=== PATIENT | female | born 1995 | race Caucasian/White ===

== ENCOUNTER 2016-11-22 20:59 | Emergency (ER) | payer SELFPAY ==
[~2016-11-22] VITALS: Ht 160 cm; Wt 52.0 kg
[~2016-11-22 20:59] MED LIST: ACET500C5 PO; CEPH-443 PO; FER325 PO; IBUP-1542 PO; PRENAT PO
[2016-11-22 21:08] VITALS: Ht 160 cm; Wt 52.0 kg
--- NOTE | 2016-11-22 22:45 | ERD ---
ER Documentation Chief Complaint Date/Time DATE: 11/22/16 TIME: 22:43 Chief Complaint 9 WKS . VAG BLEEDING X 2 DAYS WITH CRAMPING HPI 11-year-old female presents here in emergency department for complaints of vaginal bleeding started yesterday. Patient is approximately 9 weeks , 2 para 0 1. LMP 09/03/2016. Patient is complaining of pelvic pain and cramping pain, 4/and scanner, accompanying the vaginal bleeding. Patient denies hematuria or dysuria. Patient denies any fever or chills. Patient denies nausea or vomiting. ROS All systems reviewed and are negative except as per history of present illness. Medications Home Meds Active Scripts Ibuprofen* (Ibuprofen*) 600 Mg Tablet, 600 MG PO Q8 for PAIN AND/OR INFLAMMATION , #30 TAB Prov:PANTERA HOWARD MD 04/05/16 Cephalexin* (Keflex*) 500 Mg Capsule, 500 MG PO QID for 10 Days, CAP Prov:HOWIE ALONSO NP 03/28/16 Acetaminophen* (Tylophen*) 500 Mg Capsule, 1 CAP PO Q6H Y for PAIN AND OR ELEVATED TEMP, #20 CAP Prov:HOWIE ALONSO NP 03/28/16 Reported Medications Multivit/Min/Fol Ac/Iron/Pren* ( S*) 1 Tab Tab, 1 TAB PO DAILY, TAB 04/05/16 Ferrous Sulfate* (Ferrous Sulfate*) 325 Mg Tabec, 325 MG PO DAILY, TAB 04/05/16 Allergies Allergies: Coded Allergies: Sulfa (Sulfonamide Antibiotics) (Verified Allergy, Unknown, rash, 04/05/16) PMhx/Soc Medical and Surgical Hx: pt denies Medical Hx, pt denies Surgical Hx History of Surgery: No Anesthesia Reaction: No Hx Neurological Disorder: No Hx Respiratory Disorders: No Hx Cardiac Disorders: No Hx Psychiatric Problems: No Hx Miscellaneous Medical Probl: No Hx Alcohol Use: No Hx Substance Use: No Hx Tobacco Use: No Smoking Status: Never smoker FmHx Family History: No coronary disease, No diabetes, No other Physical Exam Vitals Vital Signs Date Time Temp Pulse Resp B/P Pulse Ox O2 Delivery O2 Flow Rate FiO2 11/22/16 21:08 98.6 73 18 107/53 100 Physical Exam GENERAL: The patient is well developed and appropriate for usual state of health, in no apparent distress. CHEST: Clear to auscultation bilaterally. There are no rales, wheezes or rhonchi. HEART: Regular rate and rhythm. No murmurs, clicks, rubs or gallops. No S3 or S4. ABDOMEN: Soft, nontender and nondistended. Good bowel sounds. No rebound or guarding. No gross peritonitis. No gross organomegaly or masses. No Rivera sign or McBurney point tenderness. BACK: No midline or flank tenderness. EXTREMITIES: Equal pulses bilaterally. There is no peripheral clubbing, cyanosis or edema. No focal swelling or erythema. Full range of motion. Grossly neurovascularly intact. NEURO: Alert and oriented. Cranial nerves 2-12 intact. Motor strength in all 4 extremities with 5/5 strength. Sensation grossly intact. Normal speech and gait. SKIN: There is no apparent rash or petechia. The skin is warm and dry. HEMATOLOGIC AND LYMPHATIC: There is no evidence of excessive bruising or lymphedema. No gross cervical, axillary, or inguinal lymphadenopathy. VAGINAL:: Small amount of blood in the vaginal vault, cervical os is closed , no adnexal tenderness on cervical motion tenderness noted. Result Diagram: 11/22/16 2300 11/22/16 230 Results 24 hrs Laboratory Tests Test 11/22/16 22:49 11/22/16 23:00 Urine Color LT. YELLOW Urine Clarity CLEAR Urine pH 6.5 Urine Specific [place] 1.010 Urine Ketones NEGATIVE Urine Nitrite NEGATIVE Urine Bilirubin NEGATIVE Urine Urobilinogen 0.2 E.U./dL Urine Leukocyte Esterase NEGATIVE Urine Microscopic RBC 0-2/HPF Urine Microscopic WBC 0-2/HPF Urine Squamous Epithelial Cells MODERATE Urine Bacteria FEW Urine Hemoglobin TRACE Urine Glucose NEGATIVE% Urine Total Protein NEGATIVE White Blood Count 9.810^3/ul Red Blood Count 3.6810^6/ul Hemoglobin 11.8g/dl Hematocrit 33.8% Mean Corpuscular Volume 91.8fl Mean Corpuscular Hemoglobin 32.1pg Mean Corpuscular Hemoglobin Concent 34.9g/dl Red Cell Distribution Width 11.9% Platelet Count 46879^3/UL Mean Platelet Volume 10.8fl Neutrophils % 58.3% Lymphocytes % 34.0% Monocytes % 5.8% Eosinophils % 1.2% Basophils % 0.4% Nucleated Red Blood Cells % 0.0/100WBC Neutrophils # 5.710^3/ul Lymphocytes # 3.310^3/ul Monocytes # 0.610^3/ul Eosinophils # 0.110^3/ul Basophils # 0.010^3/ul Nucleated Red Blood Cells # 0.010^3/ul Sodium Level 134mmol/L Potassium Level 3.3mmol/L Chloride Level 101mmol/L Carbon Dioxide Level 26mmol/L Anion Gap 10 Blood Urea Nitrogen 10mg/dl Creatinine 0.50mg/dl Glucose Level 91mg/dl Calcium Level 9.2mg/dl Total Bilirubin 0.2mg/dl Direct Bilirubin 0.00mg/dl Indirect Bilirubin 0.2mg/dl Aspartate Amino Transf (AST/SGOT) 19IU/L Alanine Aminotransferase (ALT/SGPT) 20IU/L Alkaline Phosphatase 52IU/L Total Protein 6.8g/dl Albumin 3.9g/dl Globulin 2.90g/dl Albumin/Globulin Ratio 1.34 Beta HCG, Quantitative 754043.0mIU/ml PROCEDURE: US Obstetrical 1st Trimester CLINICAL INDICATION: Vaginal bleeding TECHNIQUE: Multiple real-time images were acquired of the patient's maternal abdomen utilizing a curved array transducer. COMPARISON: None FINDINGS: There is a well implanted gestational sac within the fundus of the uterus with a mean sac diameter of 4.68 cm which corresponds to a gestational sac age of 10 weeks 4 days. No yolk sac is identified. There is a single pole with a crown-rump length of 4.12 cm which corresponds to a gestational age of 11 weeks 0 days. There is positive cardiac activity being a t 176 beats per minute. There is a small focus of subchorionic hemorrhage seen posterior to the amniotic sac measuring 2.7 x 1.7 cm in cross diameter. Neither ovary was visualized. No adnexal mass or free fluid is identified IMPRESSION: 1. Single live intrauterine fetus which by ultrasound corresponds to a gestational age of 11 weeks 0 days plus or minus 1 week. The estimated date of delivery based on today's sonogram is 06/14/2017. 2. Small focus of subchorionic hemorrhage seen posterior to the inferior aspect of the amniotic sac measuring 2.7 x 1.7 cm in cross diameter. 3. The ovaries were not identified but no adnexal mass or free fluid was evident. Physician Kodi Date Time Electronically viewed and signed by Physician Kodi on 11/22/2016 22:53 RH/ CC: HOWIE ALONSO NP Procedures/MDM Medical Decision Making: Patients vaginal bleeding is most likely consistent of possible threatened . Patient does not show any evidence of hypovolemic shock. Patients hemoglobin and hematocrit is stable. There is low suspicion for ectopic . JOANNA results show viable at 10 weeks w / Subchorionic hemorrhage BetaHCG Quantitative is appropriate for The patient is Rh+, does not need RhoGAM this time. There is no signs of symptoms of dehydration. There is low suspicion for sepsis. Patient appears well and is hemodynamically stable. Disposition: Home. Condition: Stable Instructions: Patient is advised to do bed rest, avoid heavy lifting, and avoid having sex until cleared by OB doctor. Patient is advised to follow up with OB doctor or here at the ER in 48 hours for reevaluation of symptoms, repeat beta HCG quantitative and ultrasound. Patient is advised that is symptoms are worst, severe bleeding, dizziness, severe abdominal pain, fever, worst signs and symptoms to return to the emergency department immediately. Departure Diagnosis: Primary Impression: Vaginal bleeding in patient at less than 20 weeks gestation Additional Impressions: Subchorionic hemorrhage Fetus number: single or unspecified fetus Trimester: unspecified trimester Qualified Code: O41.8X90 - Subchorionic hemorrhage, unspecified trimester, not applicable or unspecified fetus Intrauterine Condition: Stable Patient Instructions: Bleeding During Early Additional Instructions: Patient is advised to do bed rest, avoid heavy lifting, and avoid having sex until cleared by OB doctor. Patient is advised to follow up with OB doctor or here at the ER in 48 hours for reevaluation of symptoms, repeat beta HCG quantitative and ultrasound. Patient is advised that is symptoms are worst, severe bleeding, dizziness, severe abdominal pain, fever, worst signs and symptoms to return to the emergency department immediately. HOWIE ALONSO NP Nov 22, 2016 22:45
--- NOTE | 2016-11-22 22:53 | RADRPT ---
PROCEDURE: US Obstetrical 1st Trimester CLINICAL INDICATION: Vaginal bleeding TECHNIQUE: Multiple real-time images were acquired of the patient's maternal abdomen utilizing a curved array transducer. COMPARISON: None FINDINGS: There is a well implanted gestational sac within the fundus of the uterus with a mean sac diameter o f 4.68 cm which corresponds to a gestational sac age of 10 weeks 4 days. No yolk sac is identified. There is a single pole with a crown-rump length of 4.12 cm which corresponds to a gestational age of 11 weeks 0 days. There is positive cardiac activity being a t 176 beats per minute. T here is a small focus of subchorionic hemorrhage seen posterior to the amniotic sac measuring 2.7 x 1.7 cm in cross diameter. Neither ovary was visualized. No adnexal mass or free fluid is identified IMPRESSION: 1. Single live intrauterine fetus which by ultrasound corresponds to a gestational age of 11 weeks 0 days plus or minus 1 week. The estimated date of delivery based on today's sonogram is 06/14/2017. 2. Small focus of subchorionic hemorrhage seen posterior to the inferior aspect of the amniotic sac measuring 2.7 x 1.7 cm in cross diameter. 3. The ovaries were not identified but no adnexal mass or free fluid was evident. Physician Kodi Date Time Electronically viewed and signed by Physician Kodi on 11/22/2016 22:53 RH/
[2016-11-22 23:08] LABS: ADD SCAN DIFF NO
[2016-11-22 23:11] LABS: BASOPHILS % 0.4 % (0.0-2.0); EOSINOPHILS # 0.1 10^3/ul (0.0-0.5); EOSINOPHILS % 1.2 % (0.0-7.0); HEMATOCRIT 33.8 % (37.0-47.0); HEMOGLOBIN 11.8 g/dl (12.0-16.0); LYMPHOCYTES # 3.3 10^3/ul (0.8-2.9); MEAN CORPUSCULAR HEMOGLOBIN 32.1 pg (29.0-33.0); MEAN CORPUSCULAR HGB CONC 34.9 g/dl (32.0-37.0); MEAN CORPUSCULAR VOLUME 91.8 fl (72.0-104.0); MEAN PLATELET VOLUME 10.8 fl (7.4-10.4); MONOCYTE # 0.6 10^3/ul (0.3-0.9); MONOCYTES % 5.8 % (0.0-13.0); NEUTROPHIL # 5.7 10^3/ul (1.6-7.5); NEUTROPHILS % 58.3 % (30.0-74.0); PLATELET COUNT 263 10^3/UL (140-415); RED BLOOD COUNT 3.68 10^6/ul (4.20-5.40); RED CELL DISTRIBUTION WIDTH 11.9 % (11.5-14.5); WHITE BLOOD COUNT 9.8 10^3/ul (4.8-10.8)
[2016-11-22 23:34] LABS: ADD UMIC YES; URINE BILIRUBIN (Dip) NEGATIVE (NEGATIVE); URINE BLOOD (Dip) TRACE (NEGATIVE); URINE COLOR LT. YELLOW (YELLOW); URINE GLUCOSE (Dip) NEGATIVE (NEGATIVE); URINE KETONES (Dip) NEGATIVE (NEGATIVE); URINE LEUKOCYTE ESTERASE (Dip) NEGATIVE (NEGATIVE); URINE NITRITE (Dip) NEGATIVE (NEGATIVE); URINE TOTAL PROTEIN (Dip) NEGATIVE (NEGATIVE); URINE UROBILINOGEN (Dip) 0.2 E.U./dL (0.1-1.0)
[2016-11-22 23:34] LABS: ALBUMIN 3.9 g/dl (3.3-4.9)
[2016-11-22 23:35] LABS: POTASSIUM 3.3 mmol/L (3.5-5.1)
[2016-11-22 23:37] LABS: ALBUMIN/GLOBULIN RATIO 1.34; BILIRUBIN,INDIRECT 0.2 mg/dl (0-1.1); BILIRUBIN,TOTAL 0.2 mg/dl (0.2-1.3); CREATININE 0.5 mg/dl (0.44-1.00); TOTAL PROTEIN 6.8 g/dl (6.1-8.1)
[2016-11-22 23:38] LABS: CALCIUM 9.2 mg/dl (8.4-10.2)
[2016-11-22 23:42] LABS: BACTERIA,URINE FEW; SQUAMOUS EPITHELIAL CELL,UR MODERATE; URINE RBCS 0-2 /HPF (0)
[2016-11-23 01:19] VITALS: BP 110/62; PULSE 78; RESP 18; TEMP 98.3
== END 2016-11-23 01:21 | disposition home or self-care (01) ==
LOC: FTE 20:59
DX: O20.9 Hemorrhage in early pregnancy, unspecified (principal); O41.8X10 Other specified disorders of amniotic fluid and membranes, first trimester, not applicable or unspecified; O26.891 Other specified pregnancy related conditions, first trimester; R10.2 Pelvic and perineal pain; Z3A.11 11 weeks gestation of pregnancy
CPT/HCPCS: 36415; 76801; 80053; 81001; 81003; 84702; 85025; 86900; 86901

== ENCOUNTER 2017-01-17 18:45 | Emergency (ER) | payer SELFPAY ==
[~2017-01-17] VITALS: Ht 160 cm; Wt 52.2 kg
[2017-01-17 18:54] VITALS: Ht 160 cm; Wt 52.2 kg
[2017-01-17] MEDS ORDERED: SOD CHLORIDE 0.9% 1,000 ML IV STA (19:57)
[2017-01-17] MEDS ORDERED: ONDANSETRON 4 MG INJ IV STA (19:57)
[2017-01-17 20:48] LABS: ADD SCAN DIFF NO
[2017-01-17 20:53] LABS: BASOPHIL # 0.1 10^3/ul (0.0-0.1); BASOPHILS % 0.4 % (0.0-2.0); EOSINOPHILS # 0.1 10^3/ul (0.0-0.5); EOSINOPHILS % 0.5 % (0.0-7.0); HEMATOCRIT 35.2 % (37.0-47.0); HEMOGLOBIN 11.9 g/dl (12.0-16.0); LYMPHOCYTES # 2.8 10^3/ul (0.8-2.9); LYMPHOCYTES % 25.3 % (18.0-55.0); MEAN CORPUSCULAR HEMOGLOBIN 31.7 pg (29.0-33.0); MEAN CORPUSCULAR HGB CONC 33.8 g/dl (32.0-37.0); MEAN CORPUSCULAR VOLUME 93.9 fl (72.0-104.0); MEAN PLATELET VOLUME 11.5 fl (7.4-10.4); MONOCYTE # 0.6 10^3/ul (0.3-0.9); MONOCYTES % 4.9 % (0.0-13.0); NEUTROPHIL # 7.7 10^3/ul (1.6-7.5); NEUTROPHILS % 68.7 % (30.0-74.0); PLATELET COUNT 235 10^3/UL (140-415); RED BLOOD COUNT 3.75 10^6/ul (4.20-5.40); WHITE BLOOD COUNT 11.2 10^3/ul (4.8-10.8)
[2017-01-17 21:04] LABS: ADD UMIC YES; URINE BILIRUBIN (Dip) NEGATIVE (NEGATIVE); URINE BLOOD (Dip) NEGATIVE (NEGATIVE); URINE COLOR LT. YELLOW (YELLOW); URINE KETONES (Dip) NEGATIVE (NEGATIVE); URINE LEUKOCYTE ESTERASE (Dip) 2+ (NEGATIVE); URINE NITRITE (Dip) NEGATIVE (NEGATIVE); URINE TOTAL PROTEIN (Dip) NEGATIVE (NEGATIVE); URINE UROBILINOGEN (Dip) 0.2 E.U./dL (0.1-1.0)
--- NOTE | 2017-01-17 21:06 | RADRPT ---
PROCEDURE: Real Time Sonogram. 01/17/20178:34 PM CLINICAL INDICATION: Abdominal pain. TECHNIQUE: This procedure was performed on a high-resolution real time Unit using a endovaginal pr obe. COMPARISON: OB sonogram 11/22/2016. FINDINGS: The uterus maintains a single viable fetus. Presentation: Cephalic. Cervical Length: Not demonstrated.Placental Location: Anterior grade 0.Placental Previa: No. Body limb and cardiac motion: Yes. Heart rate: 152 beats per minute. Amniotic fluid volume:Normal. Measured data: BPD:4.4 cm19 weeks 3 days plus or minus 1 week 5 days. HC:16.2 cm19 weeks air days plus or minus 1 week 3 days. AC:13.9 cm19 weeks 2 days plus or minus 2 weeks zero days. FC:3 cm19 weeks 1 day plus or minus 1 week 6 days. AUA:19 weeks 0 daysplus or minus 1 week 0 days PETER (AUA):06/13/2017 Serial scan estimated menstrual age: Not calculated. weight: 280 g plus or minus 42 g. Endovaginal imaging utilized: Yes. Additional findings: No. IMPRESSION: See above RPTAT:AAJJ Physician Lashell Date Time Electronically viewed and signed by Physician Lashell on 01/17/2017 21:05 /
[2017-01-17 21:17] LABS: BACTERIA,URINE MODERATE; SQUAMOUS EPITHELIAL CELL,UR MODERATE; URINE RBCS 0-2 /HPF (0)
[2017-01-17 21:24] LABS: CALCIUM 9.8 mg/dl (8.4-10.2)
[2017-01-17 21:30] LABS: CREATININE 0.48 mg/dl (0.44-1.00); POTASSIUM 3.5 mmol/L (3.5-5.1)
[2017-01-17 21:31] LABS: ALBUMIN 4.7 g/dl (3.3-4.9); ALBUMIN/GLOBULIN RATIO 1.56; BILIRUBIN,INDIRECT 0.2 mg/dl (0-1.1); BILIRUBIN,TOTAL 0.2 mg/dl (0.2-1.3); TOTAL PROTEIN 7.7 g/dl (6.1-8.1)
[2017-01-17] MEDS ORDERED: CEPH-443 PO (22:06)
--- NOTE | 2017-01-17 22:18 | ERD ---
ER Documentation Chief Complaint Date/Time DATE: 01/17/17 TIME: 22:16 Chief Complaint AP, PAINFUL URINATION, CRAMPING X2 MO. 22 WEEKS . HPI This is a 21-year-old female approximately 22 weeks . She was seen by labor and delivery upstairs but then sent back to the emergency room for further evaluation. She is complaining of generalized abdominal pain with dysuria and increased urinary frequency. She also admits to intermittent dizziness. Denies any vaginal bleeding. Denies any fever. Denies trauma. ROS All systems reviewed and are negative except as per history of present illness. Medications Home Meds Active Scripts Cephalexin* (Keflex*) 500 Mg Capsule, 500 MG PO BID for 5 Days, CAP Prov:ALDO LAND PA-C 01/17/17 Ibuprofen* (Ibuprofen*) 600 Mg Tablet, 600 MG PO Q8 for PAIN AND/OR INFLAMMATION , #30 TAB Prov:PANTERA HOWARD MD 04/05/16 Cephalexin* (Keflex*) 500 Mg Capsule, 500 MG PO QID for 10 Days, CAP Prov:HOWIE ALONSO NP 03/28/16 Acetaminophen* (Tylophen*) 500 Mg Capsule, 1 CAP PO Q6H Y for PAIN AND OR ELEVATED TEMP, #20 CAP Prov:HOWIE ALONSO NP 03/28/16 Reported Medications Multivit/Min/Fol Ac/Iron/Pren* ( S*) 1 Tab Tab, 1 TAB PO DAILY, TAB 04/05/16 Ferrous Sulfate* (Ferrous Sulfate*) 325 Mg Tabec, 325 MG PO DAILY, TAB 04/05/16 Allergies Allergies: Coded Allergies: Sulfa (Sulfonamide Antibiotics) (Verified Allergy, Unknown, rash, 01/17/17) PMhx/Soc History of Surgery: No (DENIES MEDICAL AND SURGICAL HX.) Anesthesia Reaction: No Hx Neurological Disorder: No Hx Respiratory Disorders: No Hx Cardiac Disorders: No Hx Psychiatric Problems: No Hx Miscellaneous Medical Probl: No Hx Alcohol Use: No Hx Substance Use: No Hx Tobacco Use: No Smoking Status: Never smoker FmHx Family History: No diabetes Physical Exam Vitals Vital Signs Date Time Temp Pulse Resp B/P Pulse Ox O2 Delivery O2 Flow Rate FiO2 01/17/17 18:54 98.4 79 18 112/52 100 Physical Exam General: well developed, well nourished, alert, nontoxic, no distress Head: normocephalic, atraumatic Eyes: PERRL, normal conjunctiva Neck: Supple, nontender, no lymphadenopathy, no midline tenderness Respiratory: Clear to auscaultation bilaterally, speaks in full sentences, no use of accesory muscles or labored breathing, no rales, ronchi, or wheezing Cardiovascular: RRR, No murmurs GI: soft, non tender, non distended, negative murphys sign, negative mcburneys point tenderness, no cva tenderness bilaterally, no rebound or guarding Result Diagram: 01/17/17203401/17/172034 Results 24 hrs Laboratory Tests Test 01/17/17 20:05 01/17/17 20:35 Urine Color LT. YELLOW Urine Clarity SL HAZY Urine pH 6.0 Urine Specific [place] 1.020 Urine Ketones NEGATIVE Urine Nitrite NEGATIVE Urine Bilirubin NEGATIVE Urine Urobilinogen 0.2 E.U./dL Urine Leukocyte Esterase 2+ Urine Microscopic RBC 0-2/HPF Urine Microscopic WBC 5-10/HPF Urine Squamous Epithelial Cells MODERATE Urine Bacteria MODERATE Urine Hemoglobin NEGATIVE Urine Glucose 0.1%% Urine Total Protein NEGATIVE White Blood Count 11.210^3/ul Red Blood Count 3.7510^6/ul Hemoglobin 11.9g/dl Hematocrit 35.2% Mean Corpuscular Volume 93.9fl Mean Corpuscular Hemoglobin 31.7pg Mean Corpuscular Hemoglobin Concent 33.8g/dl Red Cell Distribution Width 14.0% Platelet Count 95834^3/UL Mean Platelet Volume 11.5fl Neutrophils % 68.7% Lymphocytes % 25.3% Monocytes % 4.9% Eosinophils % 0.5% Basophils % 0.4% Nucleated Red Blood Cells % 0.0/100WBC Neutrophils # 7.710^3/ul Lymphocytes # 2.810^3/ul Monocytes # 0.610^3/ul Eosinophils # 0.110^3/ul Basophils # 0.110^3/ul Nucleated Red Blood Cells # 0.010^3/ul Sodium Level 137mmol/L Potassium Level 3.5mmol/L Chloride Level 108mmol/L Carbon Dioxide Level 22mmol/L Anion Gap 11 Blood Urea Nitrogen 9mg/dl Creatinine 0.48mg/dl Glucose Level 86mg/dl Calcium Level 9.8mg/dl Total Bilirubin 0.2mg/dl Direct Bilirubin 0.00mg/dl Indirect Bilirubin 0.2mg/dl Aspartate Amino Transf (AST/SGOT) 36IU/L Alanine Aminotransferase (ALT/SGPT) 30IU/L Alkaline Phosphatase 61IU/L Total Protein 7.7g/dl Albumin 4.7g/dl Globulin 3.00g/dl Albumin/Globulin Ratio 1.56 Current Medications Medications (Trade) Dose Ordered Sig/Karl Route PRN Reason Start Time Stop Time Status Last Admin Dose Admin Sodium Chloride (NS) 1,000 ml @ 1,000 mls/hr Q1H STAT IV 01/17/17 19:57 01/17/17 20:56 DC 01/17/17 20:12 Ondansetron HCl (Zofran Inj) 4 mg ONCE STAT IV 01/17/17 19:57 01/17/17 19:59 DC 01/17/17 20:12 Procedures/MDM female here for abdominal pain with dysuria. Vitals are normal she is well-appearing in no distress. She felt better after IV fluids and nausea medication. Ultrasound and labs unremarkable other than evidence of cystitis on urinalysis and she will be treated with Keflex outpatient. Recommended this patient follow up with her primary care doctor within 48 hours or return to the emergency room for any worsening of symptoms. However this time I do believe there is suitable for outpatient management. I answered all their questions and they agreed with the plan and were discharged home. Departure Diagnosis: Primary Impression: Cystitis during in second trimester, antepartum Condition: Stable Patient Instructions: Cystitis Additional Instructions: Call your primary care doctor TOMORROW for an appointment during the next 1-2 days.See the doctor sooner or return here if your condition worsens before your appointment time. ALDO LAND PA-C January 17, 2017 22:18
[2017-01-17 22:20] VITALS: BP 138/74; PULSE 72; RESP 20; TEMP 97.9
== END 2017-01-17 22:21 | disposition home or self-care (01) ==
LOC: FTE 18:45
DX: O23.12 Infections of bladder in pregnancy, second trimester (principal); R10.84 Generalized abdominal pain; Z3A.19 19 weeks gestation of pregnancy
CPT/HCPCS: 36415; 76805; 80053; 81001; 85025; 86900; 86901; 96374; 99285; J2405; J7030

== ENCOUNTER 2017-02-12 23:55 | Outpatient (CLI) | payer SELFPAY ==
[~2017-02-12] VITALS: Ht 157.5 cm; Wt 54.8 kg
[2017-02-13 00:18] VITALS: Ht 157.5 cm; Wt 54.8 kg
[2017-02-13 00:57] LABS: ADD UMIC NO; UR ASCORBIC ACID NEGATIVE (NEGATIVE); UR BILIRUBIN (Dip) NEGATIVE (NEGATIVE); UR BLOOD (Dip) NEGATIVE (NEGATIVE); UR CLARITY CLEAR (CLEAR); UR COLOR COLORLESS (YELLOW); UR GLUCOSE (Dip) NEGATIVE (NEGATIVE); UR KETONES (Dip) NEGATIVE (NEGATIVE); UR LEUKOCYTE ESTERASE (Dip) NEGATIVE Leu/ul (NEGATIVE); UR NITRITE (Dip) NEGATIVE (NEGATIVE); UR SPECIFIC GRAVITY (Dip) 1.002 (1.003-1.030); UR TOTAL PROTEIN (Dip) NEGATIVE (NEGATIVE); UR UROBILINOGEN (Dip) NEGATIVE (NEGATIVE)
--- NOTE | 2017-02-13 01:05 | RADRPT ---
PROCEDURE: ULTRASOUND OBSTETRICAL CLINICAL INDICATION: 21-year-old female in labor for cervical length evaluation. TECHNIQUE: Multiple sonographic images of the pelvis were obtained. The images were reviewed on a PACS workstation. COMPARISON: Ultrasound OB January 17, 2017 FINDINGS: The cervix is closed with a length of 2.9 cm measured transvaginally. Mall fluid is seen within the endocervical canal. There is an intrauterine gestation. IMPRESSION: The cervix has a length of 2.9 cm. .Patrick Edmonds MD, MD Date Time Electronically viewed and signed by .Patrick Edmonds MD, on 02/13/2017 01:04 .Ester/
--- NOTE | 2017-02-13 01:52 | PN ---
Triage Information Date/Time with IUP at 22 weeks who presents with LAP. she feels fine at this time and does not have pain. she would like to go home. she has appt with her OB later today. she denies LOF per vagina. she denies vaginal bleeding. Weeks of Gestation 22 : 2 Para: 1 Diabetes: none Objective Contractions: None Exam NAD A&O Abdomen is soft and not tender and gravid cervix is long and closed Results/Medications Results 24 hrs Laboratory Tests Test 02/12/17 23:55 Urine Color COLORLESS Urine Clarity CLEAR Urine pH 7.0 Urine Specific [place] 1.002 L Urine Ketones NEGATIVE Urine Nitrite NEGATIVE Urine Bilirubin NEGATIVE Urine Urobilinogen NEGATIVE Urine Leukocyte Esterase NEGATIVE Urine Hemoglobin NEGATIVE Urine Glucose NEGATIVE Urine Total Protein NEGATIVE Imaging Results cervical lenght is 2.9 cm. this was d/w patient and her significant other and they will d/w her OB later today Assessment/Plan 22 weeks with h/o delivery c/o LAP, resolved now she will f/u with her OB later today CRISTIN WALKER MD Feb 13, 2017 01:52
--- NOTE | 2017-02-13 01:56 | TRIAGE ---
OB Triage Datetime Report Generated by CPN: 02/13/2017 01:56 Datetime: 02/13/2017 00:30 Stage of : OB Triage Datetime: 02/13/2017 00:15 Assessment Type: Triage Maternal Assessment Level of Consciousness: Fully Conscious Headache: Denies Blurred Vision: No Respiratory Effort: Unlabored; Regular Rhythm; Equal Expansion Nausea/Vomiting: Denies RUQ Epigastric Pain: Denies Lower Extremities Edema: None Upper Extremities Edema: None Fall Risk Assessment History of Falling: (0) No Secondary Diagnosis: (0) No Ambulatory Aid: (0) Bedrest/Nurse Assist IV Therapy: (0) No Gait: (0) Normal/Bedrest/Immobile Mental Status: (0) Oriented to Own Ability Fall Score: 0 Fall Risk Score Definition: No Risk: No action required Comment: PT. URINE CLEAR, PT. APPEARS TO BE WELL HYDRATED Datetime: 02/13/2017 00:12 Time of Arrival: 02/12/2017 23:49 EGA: 22.2 Arrived By: Wheelchair Arrived From: Home Chief Complaint: ABD PAIN/SPOTTING Movement: Present Contractions: Denies/Absent Rupture of Membranes: Denies Vaginal Bleeding: Scant Vaginal Discharge: Denies Recent Sexual Intercouse: 4 DAYS AGO Abdominal Trauma: Not Applicable Patient Complaints: Cramping Time Provider Notified: 02/13/2017 00:13 Provider Notified: ARCELIA Initial Plan: EFM,CALL OB
== END 2017-02-13 01:50 | disposition home or self-care (01) ==
LOC: OBT 23:55 → L-D 23:55 → OBT 02-13 01:50
PROVIDERS: ATTEND Obstetrics & Gynecology
DX: O26.892 Other specified pregnancy related conditions, second trimester (principal); R10.9 Unspecified abdominal pain; O20.9 Hemorrhage in early pregnancy, unspecified; Z3A.22 22 weeks gestation of pregnancy
CPT/HCPCS: 76817; 81003; G0463

== ENCOUNTER 2017-03-13 14:56 | Outpatient (CLI) | payer SELFPAY ==
[~2017-03-13] VITALS: Ht 157.5 cm; Wt 54.5 kg
[~2017-03-13 14:56] MED LIST changes: -ACET500C5 PO; -CEPH-443 PO; -IBUP-1542 PO
[2017-03-13 15:33] VITALS: Ht 157.5 cm; Wt 54.5 kg
[2017-03-13 15:37] VITALS: BP 103/54; PULSE 78; RESP 18
[2017-03-13 16:33] LABS: ADD UMIC YES; UR ASCORBIC ACID 20 mg/dL (NEGATIVE); UR BACTERIA FEW /HPF (NONE SEEN); UR BILIRUBIN (Dip) NEGATIVE (NEGATIVE); UR BLOOD (Dip) NEGATIVE (NEGATIVE); UR CLARITY CLOUDY (CLEAR); UR COLOR YELLOW (YELLOW); UR GLUCOSE (Dip) NEGATIVE (NEGATIVE); UR KETONES (Dip) NEGATIVE (NEGATIVE); UR LEUKOCYTE ESTERASE (Dip) 3+ Leu/ul (NEGATIVE); UR MUCUS FEW /HPF (NONE SEEN); UR NITRITE (Dip) NEGATIVE (NEGATIVE); UR RBC 3 /HPF (0-5); UR SPECIFIC GRAVITY (Dip) 1.017 (1.003-1.030); UR SQUAMOUS EPITHELIAL CELL MODERATE /HPF (FEW); UR TOTAL PROTEIN (Dip) NEGATIVE (NEGATIVE); UR UROBILINOGEN (Dip) NEGATIVE (NEGATIVE)
--- NOTE | 2017-03-13 18:00 | RADRPT ---
PROCEDURE: Obstetrical ultrasound. CLINICAL INDICATION: , evaluation. Pelvic pain. Intrauterine growth restriction TECHNIQUE: Transabdominal and transvaginal sonographic images of the uterus obtained afte r first trimester, greater than 14 weeks gestation. Single intrauterine gestation present. COMPARISON: 02/13/2017 FINDINGS: Single intrauterine gestation. There is variable presentation. Measurements were made in order to determine age. The results are as follows: BPD = 7.10 cm 28 weeks 4 day(s) HC = 24.62 cm 26 weeks 5 day(s) AC = 24.75 cm 29 weeks 0 day(s) FL = 5.12 cm 27 weeks 3 day(s) ESTHELA = 23.2 cm Heart rate = 150 beats per minute The placenta is anterior. There is no evidence for an abruption or placenta previa. Trace endocervical fluid is present; cervix is otherwise closed measuring 2.5 cm in length. This is remeasured using a curved tracing of the saved images which appears slightly under measured as marke d by the it compliance manager. Ovaries are not visualized. IMPRESSION: Single intrauterine gestation of approximately 28 weeks 0 days by ultrasound criteria. [place] estimated weight = 1189 g; 96 percentile for gestational age of 26 weeks 3 days. Mildly discordant biometry is likely due to slightly under measured head circumference. Recommend co nfirmation of gestational age, sonographic measurements do not suggest intrauterine growth restricti on. Previous estimated weight percentile was 75th on 01/17/2017 for LMP. Borderline polyhydramnios with amniotic fluid index measured at 23.2 cm. Trace endocervical fluid is present; cervix is otherwise closed measuring 2.5 cm in length. RPTAT: AADD .Sj Hart MD, Date Time Electronically viewed and signed by .Sj Hart MD, on 03/13/2017 18:00 .B/
--- NOTE | 2017-03-14 02:13 | TRIAGE ---
OB Triage Datetime Report Generated by CPN: 03/14/2017 02:07 Datetime: 03/13/2017 21:03 Stage of : OB Triage Datetime: 03/13/2017 20:26 Stage of : OB Triage Datetime: 03/13/2017 20:20 Stage of : OB Triage Datetime: 03/13/2017 19:54 Labor Evaluation Frequency: 0 Monitor Mode: External Heart Rate FHR Baseline Rate: 135 Monitor Mode: External US FHR Baseline Changes: No Baseline Change Variability: Moderate 6-25 bpm Accelerations: 15X15 Decelerations: None Category: Category I Datetime: 03/13/2017 19:27 Assessment Type: Triage Maternal Assessment Level of Consciousness: Fully Conscious DTR's/Clonus: DTRs 2+; No Clonus Headache: Denies Blurred Vision: No Respiratory Effort: Unlabored; Regular Rhythm; Equal Expansion Breath Sounds, Left: Clear and Equal Breath Sounds, Right: Clear and Equal Nausea/Vomiting: Denies RUQ Epigastric Pain: Denies Lower Extremities Edema: None Upper Extremities Edema: None Facial Edema: None Fall Risk Assessment History of Falling: (0) No Secondary Diagnosis: (0) No Ambulatory Aid: (0) Bedrest/Nurse Assist IV Therapy: (0) No Gait: (0) Normal/Bedrest/Immobile Mental Status: (0) Oriented to Own Ability Fall Score: 0 Fall Risk Score Definition: No Risk: No action required Datetime: 03/13/2017 19:00 Stage of : OB Triage Maternal Assessment Level of Consciousness: Fully Conscious Headache: Denies Nausea/Vomiting: Denies RUQ Epigastric Pain: Denies Labor Evaluation Frequency: x4 Monitor Mode: External Duration (sec)2399: 50 Quality: Mild Resting Tone [place]: Relaxed Heart Rate FHR Baseline Rate: 135 Monitor Mode: External US FHR Baseline Changes: No Baseline Change Variability: Moderate 6-25 bpm Decelerations: None Category: Category I Pain Assessment Pain Scale: 4 Pain Presence: Intermittent Pain Location: Abdomen Datetime: 03/13/2017 18:00 Stage of : OB Triage Maternal Assessment Level of Consciousness: Fully Conscious Headache: Denies Nausea/Vomiting: Denies RUQ Epigastric Pain: Denies Labor Evaluation Frequency: X2 Monitor Mode: External Duration (sec)2399: 50 Quality: Mild Resting Tone [place]: Relaxed Heart Rate FHR Baseline Rate: 135 Monitor Mode: External US FHR Baseline Changes: No Baseline Change Variability: Moderate 6-25 bpm Decelerations: None Category: Category I Pain Assessment Pain Scale: 4 Pain Presence: Intermittent Pain Location: Abdomen Datetime: 03/13/2017 17:00 Maternal Assessment Level of Consciousness: Fully Conscious Headache: Denies Nausea/Vomiting: Denies RUQ Epigastric Pain: Denies Labor Evaluation Frequency: X2 Monitor Mode: External Duration (sec)2399: 50 Quality: Mild Resting Tone [place]: Relaxed Heart Rate FHR Baseline Rate: 135 Monitor Mode: External US FHR Baseline Changes: No Baseline Change Variability: Moderate 6-25 bpm Decelerations: None Category: Category I Pain Assessment Pain Scale: 4 Pain Presence: Intermittent Pain Location: Abdomen Datetime: 03/13/2017 16:00 Assessment Type: Triage Maternal Assessment Level of Consciousness: Fully Conscious DTR's/Clonus: DTRs 2+; No Clonus Headache: Denies Blurred Vision: No Respiratory Effort: Unlabored; Regular Rhythm; Equal Expansion Breath Sounds, Left: Clear and Equal Breath Sounds, Right: Clear and Equal Nausea/Vomiting: Denies RUQ Epigastric Pain: Denies Lower Extremities Edema: None Upper Extremities Edema: None Facial Edema: None Fall Risk Assessment History of Falling: (0) No Secondary Diagnosis: (0) No Ambulatory Aid: (0) Bedrest/Nurse Assist IV Therapy: (0) No Gait: (0) Normal/Bedrest/Immobile Mental Status: (0) Oriented to Own Ability Fall Score: 0 Fall Risk Score Definition: No Risk: No action required Labor Evaluation Frequency: X1 Monitor Mode: External Duration (sec)2399: 50 Quality: Mild Resting Tone [place]: Relaxed Contraction Comments: WITH IRRIT Monitor Mode: External US FHR Baseline Changes: No Baseline Change Variability: Moderate 6-25 bpm Decelerations: None Category: Category I Pain Assessment Pain Scale: 4 Pain Presence: Intermittent Pain Location: Abdomen Datetime: 03/13/2017 15:20 Stage of : OB Triage Datetime: 03/13/2017 14:55 Time of Arrival: 03/13/2017 14:55 EGA: 26.3 Arrived By: Wheelchair Chief Complaint: LEAKING FROM VAGINA; HX SHOR CX 2.9 CM Movement: Present Contractions: Irregular Rupture of Membranes: Unsure Vaginal Bleeding: None Vaginal Discharge: Present Abdominal Trauma: Not Applicable Patient Complaints: Cramping Time Provider Notified: 03/14/2017 19:42 Provider Notified: DR MARIANO Initial Plan: FHT FFN/ROM +/UA Datetime: 02/13/2017 01:34 Stage of : OB Triage Monitor Mode: External Quality: Mild Pattern: Normal: <= 5 Contractions in 10 Minutes Resting Tone [place]: Relaxed Heart Rate FHR Baseline Rate: 140 Monitor Mode: External US FHR Baseline Changes: No Baseline Change Variability: Moderate 6-25 bpm Category: Category I Pain Presence: None/Denies Vaginal Exam Dilatation (cms): 0.0 Effacement (%): 30 Station: -3 Exam By: Jossue Evans Vaginal Bleeding: None Cervix, Consistency: Firm Cervix, Position: Posterior Datetime: 02/13/2017 00:58 Stage of : OB Triage Labor Evaluation Frequency: 0 Monitor Mode: External Resting Tone [place]: Relaxed Heart Rate FHR Baseline Rate: 140 Monitor Mode: External US FHR Baseline Changes: No Baseline Change Variability: Moderate 6-25 bpm Category: Category I Pain Assessment Pain Scale: 0 Pain Presence: None/Denies Pain Type: N/A Datetime: 02/13/2017 00:15 Fall Score: 0 Fall Risk Score Definition: No Risk: No action required Datetime: 02/13/2017 00:12 EGA: 22.2
--- NOTE | 2017-03-14 04:56 | PN ---
Triage Information Date/Time 03/14/17 0310 Weeks of Gestation 26w3d : 2 Para: 0 Diabetes: none Hypertention: none Additional information u.c 's for 3days short cervix 02/13/17 2.9cm 03/13/17 2.5cm Objective Vital Signs Date Time Temp Pulse Resp B/P Pulse Ox O2 Delivery O2 Flow Rate FiO2 03/13/17 15:37 98.1 78 18 103/54 Room Air Heart Rate: 130's Contractions: None Results/Medications Results 24 hrs Laboratory Tests Test 03/13/17 15:20 03/13/17 15:55 Urine Color YELLOW Urine Clarity CLOUDY A Urine pH 5.0 Urine Specific [place] 1.017 Urine Ketones NEGATIVE Urine Nitrite NEGATIVE Urine Bilirubin NEGATIVE Urine Urobilinogen NEGATIVE Urine Leukocyte Esterase 3+ H Urine Microscopic RBC 3 Urine Microscopic WBC 12 H Urine Squamous Epithelial Cells MODERATE Urine Bacteria FEW A Urine Mucus FEW A Urine Hemoglobin NEGATIVE Urine Glucose NEGATIVE Urine Total Protein NEGATIVE Membranes Rupture NEGATIVE Fibronectin NEGATIVE Medications macrobid bid #20 Imaging Results CVL 2.5 FFN neg ROM plus neg ESTHELA 23.2 EFW 1189 96% Assessment/Plan IUP 26w5d short cervix UTI polyhydroamnios Plan Rx macrobid discharge home with modified bed rest increase fluid intake with cranberry juice RTH 1w for cervical length and ESTHELA MARIN MARIANO MD Mar 14, 2017 03:32
== END 2017-03-13 20:26 | disposition home or self-care (01) ==
LOC: OBT 14:56 → L-D 14:57 → OBT 20:26
PROVIDERS: ATTEND Obstetrics & Gynecology
DX: O40.2XX0 Polyhydramnios, second trimester, not applicable or unspecified (principal); O23.42 Unspecified infection of urinary tract in pregnancy, second trimester; Z3A.26 26 weeks gestation of pregnancy
CPT/HCPCS: 76815; 76817; 81001; 82731; 84112; 87086

== ENCOUNTER 2017-03-20 01:35 | Outpatient (CLI) | payer SELFPAY ==
[~2017-03-20] VITALS: Ht 157.5 cm; Wt 57.8 kg
[2017-03-20 02:09] VITALS: BP 108/54; PULSE 71; RESP 16; Ht 157.5 cm; Wt 57.8 kg
[2017-03-20 02:53] LABS: BASOPHILS % 0.3 % (0.0-2.0); EOSINOPHILS # 0.1 10^3/ul (0.0-0.5); EOSINOPHILS % 0.8 % (0.0-7.0); HEMATOCRIT 33.7 % (37.0-47.0); HEMOGLOBIN 11.9 g/dl (12.0-16.0); LYMPHOCYTES # 2.8 10^3/ul (0.8-2.9); LYMPHOCYTES % 29.2 % (18.0-55.0); MEAN CORPUSCULAR HEMOGLOBIN 33.5 pg (29.0-33.0); MEAN CORPUSCULAR HGB CONC 35.3 g/dl (32.0-37.0); MEAN CORPUSCULAR VOLUME 94.9 fl (72.0-104.0); MEAN PLATELET VOLUME 11.4 fl (7.4-10.4); MONOCYTE # 0.6 10^3/ul (0.3-0.9); MONOCYTES % 6.1 % (0.0-13.0); NEUTROPHIL # 6.1 10^3/ul (1.6-7.5); NEUTROPHILS % 63.1 % (30.0-74.0); PLATELET COUNT 207 10^3/UL (140-415); RED BLOOD COUNT 3.55 10^6/ul (4.20-5.40); RED CELL DISTRIBUTION WIDTH 12.7 % (11.5-14.5); WHITE BLOOD COUNT 9.6 10^3/ul (4.8-10.8)
[2017-03-20 03:00] LABS: ADD UMIC YES; UR ASCORBIC ACID NEGATIVE (NEGATIVE); UR BACTERIA FEW /HPF (NONE SEEN); UR BILIRUBIN (Dip) NEGATIVE (NEGATIVE); UR BLOOD (Dip) NEGATIVE (NEGATIVE); UR CLARITY SLIGHTLY CLOUDY (CLEAR); UR COLOR YELLOW (YELLOW); UR GLUCOSE (Dip) NEGATIVE (NEGATIVE); UR KETONES (Dip) NEGATIVE (NEGATIVE); UR LEUKOCYTE ESTERASE (Dip) 3+ Leu/ul (NEGATIVE); UR NITRITE (Dip) NEGATIVE (NEGATIVE); UR RBC 3 /HPF (0-5); UR SPECIFIC GRAVITY (Dip) 1.012 (1.003-1.030); UR SQUAMOUS EPITHELIAL CELL FEW /HPF (FEW); UR TOTAL PROTEIN (Dip) NEGATIVE (NEGATIVE); UR UROBILINOGEN (Dip) NEGATIVE (NEGATIVE)
--- NOTE | 2017-03-20 03:57 | RADRPT ---
PROCEDURE: US OB cervical length. CLINICAL INDICATION: Labor TECHNIQUE: Multiple sonographic images of the pelvis were obtained. The images were reviewed on a PACS workstation. COMPARISON: No pertinent prior examinations were submitted for comparison. FINDINGS: The cervix is closed with a length of 3 cm. There is a single live intrauterine gestation. Cardiac activity is present with 134 beats per minut e. There is a vertex presentation. This examination was not performed for anatomy. The placenta is anterior, grade 1 appearance. There is no evidence for an abruption or placenta prev ia. ESTHELA is measured at 18.7 cm. IMPRESSION: ESTHELA = 18.7 cm. RPTAT: HIKT .Jose Francisco Weir MD, Date Time Electronically viewed and signed by .Jose Francisco Weir MD, on 03/20/2017 03:56 .T/
--- NOTE | 2017-03-20 04:44 | PN ---
Triage Information Date/Time March 20, 2017 Weeks of Gestation 27w 3d : 2 Para: 0 Diabetes: none Hypertention: none Additional information Pt came in complaining of left lateral and back pain that started after she was sleeping on her left side. She also reports numbness in her legs x 2 weeks. No bleeding of leaking. PMHx: none. PSHx: none. All: sulfa. Objective Vital Signs Date Time Temp Pulse Resp B/P Pulse Ox O2 Delivery O2 Flow Rate FiO2 03/20/17 02:09 97.4 71 16 108/54 Room Air Heart Rate: 130's Heart Rate Comments Baseline 130'swith accels to 150 bpm. No decels. Contractions: None Results/Medications Result Diagram: 03/20/17 0230 Results 24 hrs Laboratory Tests Test 03/20/17 01:56 03/20/17 02:30 Urine Color YELLOW Urine Clarity SLIGHTLY CLOUDY A Urine pH 6.0 Urine Specific [place] 1.012 Urine Ketones NEGATIVE Urine Nitrite NEGATIVE Urine Bilirubin NEGATIVE Urine Urobilinogen NEGATIVE Urine Leukocyte Esterase 3+ H Urine Microscopic RBC 3 Urine Microscopic WBC 31 H Urine Squamous Epithelial Cells FEW Urine Bacteria FEW A Urine Hemoglobin NEGATIVE Urine Glucose NEGATIVE Urine Total Protein NEGATIVE White Blood Count 9.6 Red Blood Count 3.55 L Hemoglobin 11.9 L Hematocrit 33.7 L Mean Corpuscular Volume 94.9 Mean Corpuscular Hemoglobin 33.5 H Mean Corpuscular Hemoglobin Concent 35.3 Red Cell Distribution Width 12.7 Platelet Count 207 Mean Platelet Volume 11.4 H Neutrophils % 63.1 Lymphocytes % 29.2 Monocytes % 6.1 Eosinophils % 0.8 Basophils % 0.3 Nucleated Red Blood Cells % 0.0 Neutrophils # 6.1 Lymphocytes # 2.8 Monocytes # 0.6 Eosinophils # 0.1 Basophils # 0.0 Nucleated Red Blood Cells # 0.0 Imaging Results Cervical length is 3 cm and is closed. ESTHELA 18.7 cm. VTX. Anterior placenta. Assessment/Plan A: IUP at 27w 3d. Left abdominal pain. False labor. P: Reviewed different sleeping positions for the pt. D/C pt home after reassuring pt that all appears to be OK. BRIANDA JACOBS MD Mar 20, 2017 04:44
--- NOTE | 2017-03-20 05:45 | TRIAGE ---
OB Triage Datetime Report Generated by CPN: 03/20/2017 05:45 Datetime: 03/20/2017 04:30 Labor Evaluation Frequency: 0 Monitor Mode: External Heart Rate FHR Baseline Rate: 135 Monitor Mode: External US FHR Baseline Changes: No Baseline Change Variability: Moderate 6-25 bpm Accelerations: 15X15 Decelerations: None Category: Category I Datetime: 03/20/2017 04:10 Comments: LOSS OF CONTACT Datetime: 03/20/2017 04:04 Comments: LOSS OF CONTACT Datetime: 03/20/2017 02:56 Labor Evaluation Frequency: 0 Monitor Mode: External Heart Rate FHR Baseline Rate: 135 Monitor Mode: External US FHR Baseline Changes: No Baseline Change Variability: Moderate 6-25 bpm Accelerations: 15X15 Decelerations: None Category: Category I Datetime: 03/20/2017 02:30 Labor Evaluation Frequency: 0 Monitor Mode: External Heart Rate FHR Baseline Rate: 135 Monitor Mode: External US FHR Baseline Changes: No Baseline Change Variability: Moderate 6-25 bpm Accelerations: 15X15 Decelerations: None Category: Category I Datetime: 03/20/2017 01:57 Assessment Type: Triage Maternal Assessment Level of Consciousness: Fully Conscious Headache: Denies Blurred Vision: No Respiratory Effort: Unlabored; Regular Rhythm; Equal Expansion Nausea/Vomiting: Denies RUQ Epigastric Pain: Denies Facial Edema: None Fall Risk Assessment History of Falling: (0) No Secondary Diagnosis: (0) No Ambulatory Aid: (0) Bedrest/Nurse Assist IV Therapy: (0) No Gait: (0) Normal/Bedrest/Immobile Mental Status: (0) Oriented to Own Ability Fall Score: 0 Fall Risk Score Definition: No Risk: No action required Datetime: 03/20/2017 01:51 Monitor Mode: Palpation Resting Tone [place]: Relaxed Monitor Mode: External US Datetime: 03/20/2017 01:46 Time of Arrival: 03/20/2017 01:33 EGA: 27.3 Arrived By: Wheelchair Arrived From: Home Chief Complaint: ABD PAIN AND NUMBNESS IN LOWER EXTREMITY FOR APPROX. 2WEEKS Movement: Present Rupture of Membranes: Denies Vaginal Discharge: Denies Recent Sexual Intercouse: Denies Abdominal Trauma: Not Applicable Patient Complaints: Back Pain; Other Time Provider Notified: 03/20/2017 02:19 Provider Notified: ARCELIA Initial Plan: EFM, CALL OB Datetime: 03/13/2017 19:27 Fall Score: 0 Fall Risk Score Definition: No Risk: No action required Datetime: 03/13/2017 16:00 Fall Score: 0 Fall Risk Score Definition: No Risk: No action required Datetime: 03/13/2017 14:55 EGA: 26.3 Datetime: 02/13/2017 00:15 Fall Score: 0 Fall Risk Score Definition: No Risk: No action required Datetime: 02/13/2017 00:12 EGA: 22.2
== END 2017-03-20 04:35 | disposition home or self-care (01) ==
LOC: L-D 01:35 → OBT 01:35
PROVIDERS: ATTEND Obstetrics & Gynecology
DX: O47.02 False labor before 37 completed weeks of gestation, second trimester (principal); Z3A.27 27 weeks gestation of pregnancy
CPT/HCPCS: 76815; 76817; 81001; 85025; 87086; G0463

== ENCOUNTER 2017-04-08 07:25 | Outpatient (CLI) | payer SELFPAY ==
[~2017-04-08] VITALS: Ht 157.5 cm; Wt 58.2 kg
[2017-04-08 07:39] VITALS: BP 96/53; PULSE 70; RESP 20; Ht 157.5 cm; Wt 58.2 kg
[2017-04-08] MEDS ORDERED: LACTATED RINGER'S 500 ML IV ONE (08:00)
[2017-04-08] MEDS ORDERED: LACTATED RINGER'S 1,000 ML IV SCH (08:00)
[2017-04-08 09:00] LABS: BASOPHILS % 0.4 % (0.0-2.0); EOSINOPHILS # 0.1 10^3/ul (0.0-0.5); EOSINOPHILS % 0.5 % (0.0-7.0); HEMATOCRIT 37.2 % (37.0-47.0); HEMOGLOBIN 12.6 g/dl (12.0-16.0); LYMPHOCYTES # 1.9 10^3/ul (0.8-2.9); LYMPHOCYTES % 19.3 % (18.0-55.0); MEAN CORPUSCULAR HEMOGLOBIN 32.4 pg (29.0-33.0); MEAN CORPUSCULAR HGB CONC 33.9 g/dl (32.0-37.0); MEAN CORPUSCULAR VOLUME 95.6 fl (72.0-104.0); MEAN PLATELET VOLUME 11.4 fl (7.4-10.4); MONOCYTE # 0.6 10^3/ul (0.3-0.9); MONOCYTES % 6.2 % (0.0-13.0); PLATELET COUNT 186 10^3/UL (140-415); RED BLOOD COUNT 3.89 10^6/ul (4.20-5.40); RED CELL DISTRIBUTION WIDTH 13.2 % (11.5-14.5); WHITE BLOOD COUNT 9.7 10^3/ul (4.8-10.8)
[2017-04-08 09:41] LABS: ADD UMIC YES; UR ASCORBIC ACID NEGATIVE (NEGATIVE); UR BACTERIA FEW /HPF (NONE SEEN); UR BILIRUBIN (Dip) NEGATIVE (NEGATIVE); UR BLOOD (Dip) NEGATIVE (NEGATIVE); UR CLARITY SLIGHTLY CLOUDY (CLEAR); UR COLOR YELLOW (YELLOW); UR GLUCOSE (Dip) NEGATIVE (NEGATIVE); UR KETONES (Dip) NEGATIVE (NEGATIVE); UR LEUKOCYTE ESTERASE (Dip) 1+ Leu/ul (NEGATIVE); UR NITRITE (Dip) NEGATIVE (NEGATIVE); UR RBC 3 /HPF (0-5); UR SPECIFIC GRAVITY (Dip) 1.009 (1.003-1.030); UR SQUAMOUS EPITHELIAL CELL FEW /HPF (FEW); UR TOTAL PROTEIN (Dip) NEGATIVE (NEGATIVE); UR UROBILINOGEN (Dip) NEGATIVE (NEGATIVE)
--- NOTE | 2017-04-08 09:53 | RADRPT ---
PROCEDURE: US OB biophysical profile. Ultrasound cervix CLINICAL INDICATION: decreased movements, labor TECHNIQUE: Multiple sonographic images of the pelvis were obtained. In addition, transvaginal imag es of the cervix were obtained. The images were reviewed on a PACS workstation. COMPARISON: 03/20/2017 FINDINGS: There is a single viable intrauterine gestation. Cardiac activity is present with 142 beats per min [place]. There is a vertex presentation. The cervix measures 3.0 cm in length. There is a small amount of fluid within the cervix. The placenta is anterior fundal. There is no evidence of placental abruption. There is an increased amount of amniotic fluid with an ESTHELA = 24.6 cm. Biophysical profile: movement 2/2 tone 2/2. breathing 2/2 ESTHELA 2/2 Total 03/28 RPTAT: AA . IMPRESSION: Normal biophysical profile. Cervix measures 3 cm in length with a small amount of fluid within it. . .Daniel Faith MD, MD Date Time Electronically viewed and signed by .Daniel Faith MD, on 04/08/2017 09:52 .S/
--- NOTE | 2017-04-08 09:54 | RADRPT ---
PROCEDURE: US OB. CLINICAL INDICATION: Size and dates , labor TECHNIQUE: Multiple sonographic images of the pelvis and gravid uterus were obtained. The images were reviewed on a PACS workstation. COMPARISON: 03/20/2017 FINDINGS: There is a single viable intrauterine gestation. Cardiac activity is present with 135 beats per min [place]. There is a vertex presentation. The cervix measures 3.0 cm in length. There is a small amount of fluid within the cervix. The placenta is anterior fundal. There is no evidence of placental abruption. There is an increased amount of amniotic fluid with an ESTHELA = 24.6 cm. Measurements were made in order to determine age. The results are as follows: BPD =7.9 cm HC =28.3 cm AC =27.5 cm FL =5.5 cm Estimated gestational age of approximately 30 weeks and 6 days based on ultrasound measurements. Clinical age: 30 weeks and 3 days. The estimated date of delivery is 06/11/2017, based on ultrasound measurements. The EFW = 1624 g, 47%, based on LMP age. RPTAT: AA IMPRESSION: Single viable intrauterine gestation of approximately 30 weeks and 6 days based on ultrasound measu rements. Polyhydramnios. .Daniel Faith MD, Date Time Electronically viewed and signed by .Daniel Faith MD, on 04/08/2017 09:53 .S/
--- NOTE | 2017-04-08 13:23 | QN ---
Documentation Comment Laborist Note [facility]/Dr Murillo 21 y.o. A1 with an IUP at 30w 3. c/o back pain. Pt reports she has had the back pain x 4 days coming x 10 minutes about once/hour. Primarily on the right. +slight dysuria and frequency also. Has had UTI's during this . No VB. No abdominal pain or UC's. +FM. PMHx: none. PSHx: none. All: sulfa. BP 96/53 T=97.7 No CVAT but pt reports that the right side hurts when tapped..1/2+R CVAT?? Fundus soft. U/A 1+ Leukocytes, 3 RBC's /HPF, few bacteria, negative nitrites. BPP 8/8 with an ESTHELA of 24.4. Cervical length 3.0 cm. EFW 1624 grams S=D. WBC 9.7 Hgb 12.6 Plts 186k A: IUP at 30w 3d. H/O UTI's ?very,very early pyelo? Polyhydramnios. P: Urine cx. IV Ancef 2 grams then will d/c pt home with Macrobid Rx 100 BID x 7 days. Pt to f/u with her doctor in 2-3 days and is to have them look at the cx results and recheck pt.Pt recieved a liter of IVF's while here. Appears well. BRIANDA JACOBS MD Apr 08, 2017 13:23
[2017-04-08] MEDS ORDERED: CEFAZOLIN 2 GM/50 ML (PMX) 50 ML IVPB ONE (13:30)
[2017-04-08] MEDS ORDERED: NITR-58 PO (13:53)
== END 2017-04-08 14:10 | disposition home or self-care (01) ==
LOC: OBT 07:25 → L-D 07:27 → OBT 14:10
PROVIDERS: ATTEND Obstetrics & Gynecology
DX: O40.3XX0 Polyhydramnios, third trimester, not applicable or unspecified (principal); Z3A.30 30 weeks gestation of pregnancy; Z87.440 Personal history of urinary (tract) infections; Z88.2 Allergy status to sulfonamides
CPT/HCPCS: 76815; 76817; 76818; 81001; 85025; 96372; G0463; J0690; J7120; 87086

== ENCOUNTER 2017-05-11 17:40 | Inpatient (IN) | payer MEDICAID ==
[~2017-05-11] VITALS: Ht 157.5 cm; Wt 61.7 kg
[~2017-05-11 17:40] MED LIST changes: +NITR-58 PO
[2017-05-11 17:51] VITALS: Ht 157.5 cm; Wt 61.7 kg
[2017-05-11 19:25] LABS: ADD UMIC YES; UR ASCORBIC ACID 40 mg/dL (NEGATIVE); UR BACTERIA FEW /HPF (NONE SEEN); UR BILIRUBIN (Dip) NEGATIVE (NEGATIVE); UR BLOOD (Dip) NEGATIVE (NEGATIVE); UR CLARITY SLIGHTLY CLOUDY (CLEAR); UR COLOR YELLOW (YELLOW); UR GLUCOSE (Dip) NEGATIVE (NEGATIVE); UR KETONES (Dip) NEGATIVE (NEGATIVE); UR LEUKOCYTE ESTERASE (Dip) 3+ Leu/ul (NEGATIVE); UR MUCUS FEW /HPF (NONE SEEN); UR NITRITE (Dip) NEGATIVE (NEGATIVE); UR RBC 2 /HPF (0-5); UR SPECIFIC GRAVITY (Dip) 1.018 (1.003-1.030); UR SQUAMOUS EPITHELIAL CELL FEW /HPF (FEW); UR TOTAL PROTEIN (Dip) NEGATIVE (NEGATIVE); UR UROBILINOGEN (Dip) NEGATIVE (NEGATIVE)
--- NOTE | 2017-05-11 19:49 | RADRPT ---
PROCEDURE: OB ultrasound for biophysical profile with ESTHELA. CLINICAL INDICATION: Leaking fluid. TECHNIQUE: Multiple sonographic images of the gravid uterus were obtained. COMPARISON: Exam dated 04/08/2017. FINDINGS: breathing movement = 2/2 tone = 2/2 motion = 2/2 ESTHELA = 2/2 Single viable intrauterine gestation. Heart rate: 132 bpm. Presentation: Cephalic. Placenta: Anterior, grade 1-2. No evidence of abruption or placenta previa. ESTHELA = 24 cm IMPRESSION: 1. Single viable intrauterine gestation. 2. Biophysical profile = 8/8. 3. ESTHELA = 24 cm. RPTAT: HLBP .Beto Pickard MD, Date Time Electronically viewed and signed by .Beto Pickard MD, MD on 05/11/2017 19:49 .P/
[2017-05-11] MEDS ORDERED: MAGNESIUM SULFATE 4 GM/100 ML 100 ML IV ONE (22:00)
[2017-05-11] MEDS ORDERED: ACETAMINOPHEN 325 MG TAB PO PRN (22:00)
--- NOTE | 2017-05-11 22:27 | HP ---
Date/Time of Note Date/Time of Note DATE: 05/11/17 TIME: 22:14 OB - History Hx of Present Free Text/Dictation 21 y.o A1(sab) at 34w6d c/o leaking fluid, c/o cramping pain on lower abdomen ,pain 6/10 VE closed spec exam no pooling ROM plus neg EFm uc 3-5 apart BPP 8/8 CVL 1.1 ESTHELA 24 admitted for BMZ x2 and tocolysis with mg so4 u/a ? contaminated will ge another specimen Chief Complaint: leaking, and U.C Estimated Due Date: Jun 14, 2017 : 2 Para: 0 Spontaneous : 1 Therapeutic : 0 Care: Good Care Ultrasounds: Normal mid trimester US Obstetrical Complications: None Medical Complications: None Past Family/Social History * Past Medical, Surgical, Family and Obstetric Histories reviewed from chart. Blood Type: O+ Rubella: immune RPR/VDRL: Negative GBS Status: Unknown HBsAG: Negative OB Admission Exam Physical Exam HEENT: WNL Heart: Rhythm Normal Lungs: Clear, Equal Abdomen: WNL Extremities: Normal Reflexes: Normal Cervical Dilatation: None Effacement: 75% Station: -3 Membranes: Intact Amniotic Fluid: Unevaluable Heart Rate: 140's Varibility: Moderate Contractions on Admission: < 5 Minutes Apart Intensity: Mild OB Assessment/Plan Reason for admission: labor Other Assessment: IUP 34w6d Plan: Other (admit and BMZx2 Mg so4) MARIN MARIANO MD May 11, 2017 22:25
[2017-05-11] MEDS: BETAMET NA PHOS/AC(6 MG/ML) 5ML INJ IM SCH (22:30)
[2017-05-11] MEDS: LACTATED RINGER'S 1,000 ML IV SCH (22:33)
--- NOTE | 2017-05-11 22:54 | RADRPT ---
PROCEDURE: Limited OB ultrasound CLINICAL INDICATION: 21 years of age, female. Evaluate cervical length. labor TECHNIQUE: Sonographic evaluation to assess the cervical length was performed. Transabdominal and transvaginal imaging of the uterus was performed. COMPARISON: None available. FINDINGS: PETER: June 14, 2017 EGA by PETER: 35 weeks 1 day The cervix is shortened with internal funneling. Overall length of cervix measures 2.4 cm. Closed ce rvix measures 1.1 cm. Internal funnel measures 1.3 cm (54%). IMPRESSION: Shortened cervix with internal funneling. Length of closed cervix measures 1.1 cm. Findings were discussed with Richie Montemayor RN by Dr. Adele Cook on May 11, 2017 at 10:50 pm . RPTAT: HCTS America Cook Physician Date Time Electronically viewed and signed by America Cook Physician on 05/11/2017 22:54 CS/
[2017-05-11] MEDS: MAGNESIUM SULFATE 20 GM/500 ML 500 ML IV SCH (23:20)
[2017-05-11 23:39] LABS: BASOPHILS % 0.3 % (0.0-2.0); EOSINOPHILS # 0.1 10^3/ul (0.0-0.5); EOSINOPHILS % 0.8 % (0.0-7.0); HEMATOCRIT 34.2 % (37.0-47.0); HEMOGLOBIN 11.9 g/dl (12.0-16.0); LYMPHOCYTES # 2.3 10^3/ul (0.8-2.9); LYMPHOCYTES % 21.2 % (18.0-55.0); MEAN CORPUSCULAR HEMOGLOBIN 33.7 pg (29.0-33.0); MEAN CORPUSCULAR HGB CONC 34.8 g/dl (32.0-37.0); MEAN CORPUSCULAR VOLUME 96.9 fl (72.0-104.0); MEAN PLATELET VOLUME 12.2 fl (7.4-10.4); MONOCYTE # 0.7 10^3/ul (0.3-0.9); NEUTROPHIL # 7.7 10^3/ul (1.6-7.5); NEUTROPHILS % 71.1 % (30.0-74.0); PLATELET COUNT 178 10^3/UL (140-415); RED BLOOD COUNT 3.53 10^6/ul (4.20-5.40); WHITE BLOOD COUNT 10.8 10^3/ul (4.8-10.8)
[2017-05-11 23:58] LABS: INR 0.9; PARTIAL THROMBOPLASTIN TIME 26.8 Sec (25.0-35.0); PROTIME 12.1 Sec (12.2-14.2); PT RATIO 0.9
[2017-05-12 00:03] LABS: ALBUMIN/GLOBULIN RATIO 1.1
[2017-05-12 00:29] LABS: ALBUMIN 3.2 g/dl (3.3-4.9); BILIRUBIN,INDIRECT 0.3 mg/dl (0-1.1); BILIRUBIN,TOTAL 0.3 mg/dl (0.2-1.3); CALCIUM 9.7 mg/dl (8.4-10.2); CREATININE 0.47 mg/dl (0.44-1.00); POTASSIUM 3.4 mmol/L (3.5-5.1); TOTAL PROTEIN 6.1 g/dl (6.1-8.1); URIC ACID 5.4 mg/dl (3.1-7.9)
[2017-05-12 02:55] LABS: ADD UMIC NO; UR ASCORBIC ACID 40 mg/dL (NEGATIVE); UR BILIRUBIN (Dip) NEGATIVE (NEGATIVE); UR BLOOD (Dip) NEGATIVE (NEGATIVE); UR CLARITY CLEAR (CLEAR); UR COLOR YELLOW (YELLOW); UR GLUCOSE (Dip) NEGATIVE (NEGATIVE); UR KETONES (Dip) NEGATIVE (NEGATIVE); UR LEUKOCYTE ESTERASE (Dip) NEGATIVE Leu/ul (NEGATIVE); UR NITRITE (Dip) NEGATIVE (NEGATIVE); UR SPECIFIC GRAVITY (Dip) 1.021 (1.003-1.030); UR TOTAL PROTEIN (Dip) NEGATIVE (NEGATIVE); UR UROBILINOGEN (Dip) NEGATIVE (NEGATIVE)
[2017-05-12] MEDS: LACTATED RINGER'S 1,000 ML IV SCH ×2 (07:07→12:34)
[2017-05-12] MEDS ORDERED: PRENATAL VITAMIN PO SCH (09:00)
[2017-05-12] MEDS: MAGNESIUM SULFATE 20 GM/500 ML 500 ML IV SCH (09:35)
[2017-05-12] MEDS ORDERED: CEFAZOLIN 2 GM/50 ML (PMX) 50 ML IVPB ONE (11:00)
--- NOTE | 2017-05-12 16:39 | RADRPT ---
PROCEDURE: Biophysical profile CLINICAL INDICATION: distress. Short cervix. TECHNIQUE: Color and levy-scale ultrasound images of an intrauterine gestation were obtained. COMPARISON: May 11, 2017 FINDINGS: A single live intrauterine gestation is identified in cephalic position with an estimated hear t rate of 134 beats per minute. The placenta is located anteriorly and has a grade of II. The cerv ix is obscured by head shadows. No evidence of abruption identified. ESTHELA is 26.7 cm. movement 2/2. tone 2/2. breathing movement 2/2. Qualitative AFV 2/2 Total biophysical profile 03/28 IMPRESSION: 03/28 biophysical profile. Polyhydramnios with an ESTHELA of 26.7 RPTAT: AA .Adolfo Reis MD, MD Date Time Electronically viewed and signed by .Adolfo Reis MD, MD on 05/12/2017 16:38 .P/
[2017-05-12] MEDS: BETAMET NA PHOS/AC(6 MG/ML) 5ML INJ IM SCH (22:32)
--- NOTE | 2017-05-13 22:33 | QN ---
Documentation Comment Late entry Note: Patient seen by the bedside No VB No CTXs No LOF +FM NSt reassring [place] No CTXs BPP 03/28 No cervical change --->Discharge home after the second dose of steroids LACI PANIAGUA M.D. May 13, 2017 22:33
--- NOTE | 2017-05-13 22:34 | DS ---
Date/Time of Note Date/Time of Note DATE: 05/13/17 TIME: 22:34 Discharge Summary Admission/Discharge Info Admit Date/Time May 11, 2017 at 21:50 Discharge Date/Time May 12, 2017 at 22:55 Discharge Diagnosis labor Patient Condition: Good Hospital Course uneventful Home Meds Reported Medications Multivit/Min/Fol Ac/Iron/Pren* ( S*) 1 Tab Tab, 1 TAB PO DAILY, TAB 04/05/16 Ferrous Sulfate* (Ferrous Sulfate*) 325 Mg Tabec, 325 MG PO DAILY, TAB 04/05/16 Discontinued Reported Medications Nitrofurantoin Monohyd Macrocr* (Macrobid*) 100 Mg Capsr, 100 MG PO BID, CAP 04/08/17 Primary Care Provider Care Physician LACI Mueller M.D. May 13, 2017 22:34
== END 2017-05-12 22:55 | disposition home or self-care (01) | DRG 778 ==
LOC: OBT 17:40 → L-D 17:42 → OBT 21:50 → OBG 05-12 09:49
PROVIDERS: ADMIT Obstetrics & Gynecology; ATTEND Obstetrics & Gynecology
DX: O60.03 Preterm labor without delivery, third trimester (principal); Z3A.34 34 weeks gestation of pregnancy
CPT/HCPCS: 76817; 76818; 80053; 81001; 81003; 83735; 84112; 84560; 85025; 85610; 85730; 86592; 86703; 86803; 86900; 86901; 87086; 87340; 87591; G0463; J0690; J0702; J3475; J7120